=== PATIENT | female | born 1950 | race Caucasian/White ===

== ENCOUNTER → 2021-04-23 | Day surgery (SDC) | payer MEDICARE ==
[~2021-04-23] VITALS: Ht 177.8 cm; Wt 102.0 kg
[~2021-04-23] MED LIST: ALLEGRA ALLERG180 MG PO; AMOX TR-K CLV1 EAC4 PO; BYSTOLIC10 MG PO; CALCIUM 600 +1 EA11 PO; COUMADIN2.5 MG PO; COUMADIN5 MG PO; DIGITEK250 MCG PO; DULCOLAX5 MG PO; ELIQUIS5 MG PO; FEOSOL325 MG PO; FLEXERIL10 MG PO; K-DUR20 MEQ PO; LASIX40 MG PO; LEVOTHROID 0.0.15 MG PO; LIPITOR40 MG PO; LOPRESSOR50 MG PO; MAGNESIUM250 M1 PO; MEDROL 4MG DOSEP4 MG PO; NITROSTAT0.4 MG SL; PERCOCET 5-3251 EACH PO; PROTONIX 40MG T40 MG PO; STOOL SOFTENER100 MG PO; SUDOGEST120 MG PO; SYNTHROID150 MCG PO; TOPROL XL 25MG25 MG PO; TOPROL XL 50 MG50 MG PO; TRAZODONE 100M100 MG PO; TYLENOL ARTHRI650 MG PO; UROCIT-K10 MEQ PO; VICODIN 10/3251 EACH PO; ZYRTEC10 MG PO
[2021-04-23 08:19] LABS: HCT 40.1 % (37.0-47.0); HGB 13.4 g/dl (12.5-16.0); MCH 31.1 pg (25.0-31.0); MCHC 33.4 g/dL (32.0-36.0); MPV 10.7 fL (6.0-9.5); RBC 4.31 M/uL (4.20-5.40); RDW 13.7 % (11.5-14.0); WBC 6.8 K/uL (4.0-10.5)
[2021-04-23 09:21] LABS: ALBUMIN 3.7 g/dL (3.4-5.0); BILIRUBIN - TOTAL 0.9 mg/dL (0.2-1.0); CREATININE 0.8 mg/dL (0.51-0.95); GLOBULIN (CALCULATION) 3.6 g/dL; POTASSIUM 3.6 mmol/L (3.5-5.1); TOTAL PROTEIN 7.3 g/dL (6.4-8.2)
== END | disposition home or self-care (01) ==
LOC: FAS 07:33
PROVIDERS: Surgery
DX: Z12.11 Encounter for screening for malignant neoplasm of colon (principal); D12.0 Benign neoplasm of cecum; D12.3 Benign neoplasm of transverse colon; I48.91 Unspecified atrial fibrillation; K21.9 Gastro-esophageal reflux disease without esophagitis; M19.90 Unspecified osteoarthritis, unspecified site; I10 Essential (primary) hypertension; E78.00 Pure hypercholesterolemia, unspecified; E03.9 Hypothyroidism, unspecified; F32.9 Major depressive disorder, single episode, unspecified; M81.0 Age-related osteoporosis without current pathological fracture; G47.30 Sleep apnea, unspecified; Z80.0 Family history of malignant neoplasm of digestive organs; R42 Dizziness and giddiness; R55 Syncope and collapse; Z87.891 Personal history of nicotine dependence; Z88.5 Allergy status to narcotic agent; Z88.2 Allergy status to sulfonamides; Z79.01 Long term (current) use of anticoagulants; Z79.1 Long term (current) use of non-steroidal anti-inflammatories (NSAID); Z79.899 Other long term (current) drug therapy
CPT/HCPCS: 36415; 80053; 88305; J0690; J2704; J7120

== ENCOUNTER 2021-06-17 18:22 | Emergency (ER) | payer MEDICARE ==
[2021-06-17 20:33] LABS: EOSINOPHIL 3.4 % (0-7); HCT 41.5 % (37.0-47.0); HGB 13.5 g/dl (12.5-16.0); MCH 29.8 pg (25.0-31.0); MCHC 32.5 g/dL (32.0-36.0); MCV 91.6 fL (78.0-100.0); MONOCYTE 10.1 % (0-12); NEUTROPHIL 59.1 % (41-80); NRBC 0; PLT 216 K/uL (150-400); RBC 4.53 M/uL (4.20-5.40); WBC 6.8 K/uL (4.0-10.5)
[2021-06-17 21:01] LABS: INR 1.17 (0.9-1.2); PROTHROMBIN TIME 14.3 SECONDS (11.8-13.4); PTT 25.9 SECONDS (24.4-34.7)
[2021-06-17 21:02] LABS: D-DIMER 0.38 ug/mLFEU (0.00-0.41)
[2021-06-17 21:12] LABS: ALBUMIN 3.7 g/dL (3.4-5.0); BILIRUBIN - TOTAL 1.2 mg/dL (0.2-1.0); BUN/CREAT RATIO (CALC) 11.1 RATIO; CREATININE 0.81 mg/dL (0.51-0.95); GLOBULIN (CALCULATION) 3.4 g/dL; POTASSIUM 3.6 mmol/L (3.5-5.1); TOTAL PROTEIN 7.1 g/dL (6.4-8.2)
[2021-06-17 21:17] LABS: LACTIC ACID 1.1 mmol/L (0.4-1.9)
[2021-06-17] MEDS ORDERED: PREDNISONE 20MG20 MG PO (22:38)
[2021-06-17] MEDS ORDERED: ZPAK PO (22:38)
== END 2021-06-17 22:52 | disposition home or self-care (01) ==
LOC: FER 18:22
PROVIDERS: Emergency Medicine Emergency Medical Services
DX: J40 Bronchitis, not specified as acute or chronic (principal); R04.2 Hemoptysis; I48.91 Unspecified atrial fibrillation; E78.5 Hyperlipidemia, unspecified; Z88.2 Allergy status to sulfonamides; Z88.5 Allergy status to narcotic agent; Z79.01 Long term (current) use of anticoagulants; Z90.49 Acquired absence of other specified parts of digestive tract; Z90.710 Acquired absence of both cervix and uterus; Z20.822 Contact with and (suspected) exposure to COVID-19
CPT/HCPCS: 36415; 71045; 80053; 83605; 84145; 85025; 85379; 85610; 85730; 87040; 93005; J1100; J7030; U0002